=== PATIENT | female | born 1935 | race Caucasian/White ===

== ENCOUNTER 2019-02-22 18:50 | Observation (INO) ==
[2019-02-22] MEDS ORDERED: ONDANSETRON HCL/PF 2 MG/ML VIAL IV ONE (19:10)
[2019-02-22] MEDS ORDERED: NORMAL SALINE 1,000 ML IV ONE (19:10)
[2019-02-22] MEDS ORDERED: METOPROLOL TARTRATE 1 MG/ML AMPUL IV ONE ×2 (19:10→19:55)
--- NOTE | 2019-02-22 19:15 | ERNOTE ---
<Michael Bentley - Last Filed: 02/22/19 19:56> Medical Problem HPI - General Chief Complaint: Nausea/Vomiting Time Seen by Provider: 02/22/19 19:02 Source: patient, family Exam Limitations: no limitations - Immun/Allergies/Home Medications Immunizations: IMMUNIZATION HX Immunizations Up to Date Yes History of Influenza Vaccine Yes Hx Pneumococcal Vaccination Yes Allergies/Adverse Reactions: Allergies nitrofurantoin Allergy (Mild, Verified 02/20/19 10:05) Itching Sulfa (Sulfonamide Antibiotics) [Sulfa(Sulfonamide Antibiotics)] Allergy (Mild, Verified 02/20/19 10:05) Hives hydrocodone [From Vicodin] Allergy (Unknown, Verified 02/20/19 10:05) vomiting, headache, dizziness ciprofloxacin [From Cipro] Allergy (Verified 02/20/19 10:05) ciprofloxacin HCl [From Cipro] Allergy (Verified 02/20/19 10:05) oxycodone [Oxycodone] Adverse Reaction (Mild, Verified 02/20/19 10:05) Nausea acetaminophen [From Percocet] Adverse Reaction (Unknown, Verified 02/20/19 10:05) severe nausea sulfamethoxazole [From Septra] Adverse Reaction (Unknown, Verified 02/20/19 10:05) rash trimethoprim [From Septra] Adverse Reaction (Unknown, Verified 02/20/19 10:05) rash Home Medications: HOME MEDICATIONS Ubidecarenone [Q-Sorb Co Q-10] 100 mg PO DAILY 05/13/14 [Last Taken 06/19/14] Acetaminophen [Tylenol] 325 mg PO Q6H PRN 09/11/15 [Last Taken Unknown] Calcium Carb/Vitamin D3/Vit K1 [Calcium + D Soft Chewable Tab] 1 ea PO DAILY 09/02/17 [Last Taken Unknown] Tamoxifen Citrate 20 mg PO DAILY 09/02/17 [Last Taken Unknown] apixaban 2.5 mg tablet 2.5 mg PO BID #180 tab 02/19/19 [Last Taken Unknown] cephalexin 500 mg capsule 500 mg PO BID 5 Days #10 cap 02/20/19 [Last Taken Unknown] Ondansetron [Zofran Odt] 4 mg PO Q6H PRN #20 tab 02/21/19 [Last Taken Unknown] Atorvastatin Calcium [Lipitor] 1 tab PO HS 02/23/19 [Last Taken Unknown] Diltiazem HCl [Diltiazem 24Hr ER] 1 tab PO DAILY 02/23/19 [Last Taken Unknown] Furosemide [Lasix] 1 tab PO DAILY 02/23/19 [Last Taken Unknown] Lactobacillus Combo No.10 [Probiotic] 1 ea PO DAILY 02/23/19 [Last Taken Unknown] Levothyroxine Sodium [Synthroid] 1 tab PO DAILY 02/23/19 [Last Taken Unknown] Om3-Dha/Epa/D3/Lutein/Zeazanth [Eye [place] Advantage Softgel] 1 ea PO DAILY 02/23/19 [Last Taken Unknown] - History of Present History Narrative: Patient was seen here yesterday and was being treated for a urinary tract infec tion. Patient believes that she started to react to the Keflex as she has had dry heaving today. Of note she is also in an irregular heart rate that appears to be atrial fibrillation with a rapid ventricular response. Patient states that when she gets dehydrated or upset she goes into atrial fibrillation easily. She denies any chest pain or shortness of breath with this. Timing: constant Severity: moderate Modifying Factors - (Worsens): Present: medication - Keflex Review of Systems - Review of Systems Constitutional: Present: See HPI EYE: Present: no symptoms reported ENT: Present: no symptoms reported Respiratory: Present: no symptoms reported Cardiology: Present: See HPI Gastrointestinal/Abdominal: Present: See HPI, nausea Genitourinary: Present: no symptoms reported Musculoskeletal: Present: no symptoms reported Skin: Present: no symptoms reported Neurological: Present: no symptoms reported Endocrine: Present: no symptoms reported Hematologic/Lymphatic: Present: no symptoms reported Psych: Present: no symptoms reported Medical History (Last Reviewed 02/22/19 @ 19:25 by Breanne Pond RN) Seborrheic keratosis (Chronic) Onset Date: ~2001 Pulmonary nodule, right (Chronic) Onset Date: ~06/25/14 Myocardial infarction (Chronic) Onset Date: ~12/2009 Hypertension (Chronic) Onset Date: ~09/05/12 Hyperlipidemia (Chronic) Onset Date: Unknown Breast cancer (Chronic) Onset Date: ~2000 2000 & 09/27/13 Atrial fibrillation (Chronic) Onset Date: ~01/2006 Actinic keratosis Onset Date: ~07/2003 Diverticulitis Onset Date: Unknown Squamous cell carcinoma Onset Date: Unknown removed from right arm Venous stasis Onset Date: ~09/05/12 Surgical History: Surgical History (Last Reviewed 02/22/19 @ 19:25 by Breanne Pond RN) History of back surgery Onset Date: ~09/07/11 [facility] History of bladder suspension procedure Onset Date: ~1975 History of breast biopsy Onset Date: ~1997 1991 & 1997- benign History of cardiac catheterization Onset Date: ~12/23/09 normal History of cataract extraction Onset Date: ~01/2006 left History of cholecystectomy Onset Date: ~1999 History of colonoscopy Onset Date: Unknown History of hemorrhoidectomy Onset Date: ~1970 History of hysterectomy Onset Date: ~1971 History of local excision of skin lesion Onset Date: ~07/2002 popular lesion of the left upper back History of nevus excision Onset Date: ~07/2003 on the right side of the collar bone on the mid clavicular area, also one on the right upper anterior chest wall and a actinic keratosis on her forehead that was with electrocautery and electrodesiccation and curretage Family History: Family History (Last Reviewed 02/22/19 @ 19:25 by Breanne Pond RN) Father , 59 yrs Cancer colon Mother Cancer small intestine Myocardial infarction Sister Cancer Social History: (Last Reviewed 02/21/19 @ 03:18 by Samara Morrell RN) Social History: Marital status: household members: spouse Service: No Tobacco: Smoking Status: Never smoker Alcohol: alcohol intake: current Alcohol type: wine alcohol intake frequency: a few times a month Substance Use: substance use type: does not use Dietary Habits: caffeine: Yes Physical Exam - Physical Exam General Appearance: Present: wd/wn, alert, no apparent distress Head Exam: Present: normal inspection, no evidence of injury Eye Exam: Normal inspection: bilateral, PERRL: bilateral Ears, Nose, Throat: Present: normal ENT inspection, H, normal pharynx Neck: Present: normal inspection, nontender Respiratory: Present: no respiratory distress, normal breath sounds, no accessory muscle use, chest nontender, lungs clear Cardiovascular/Chest: Present: no murmur, normal peripheral pulses, tachycardia, irregularly irregular Gastrointestinal/Abdominal: Present: normal bowel sounds, nondistended, soft, no organomegaly, tenderness - Mild epigastric tenderness Rectal Exam: Present: deferred Back Exam: Present: normal inspection, normal range of motion Extremity Exam: Present: normal inspection, non-tender, no edema, normal range of motion Neurological Exam: Present: alert, oriented, normal mood/affect Skin Exam: Present: normal color, warm/dry Lymphatic Exam: Present: no adenopathy Progress - Results and Orders Patient's Lab Results:: I have reviewed the patient's lab results. - Vital Signs Patient's Vital Signs:: I have reviewed the patient's vital signs. Vital Signs: Vital Signs 02/22/19 18:54 Temperature 37.0 C Pulse Rate 154 H Respiratory Rate 14 Blood Pressure 135/74 O2 Sat by Pulse Oximetry 93 - EKG EKG #1 EKG: atrial fibrillation - With RVR EKG read: Reviewed by me - X-Ray X-Ray #1 X-Ray: chest Interpretation: Reviewed by me - Progress/Reassessment Chief Complaint: Nausea/Vomiting - Transfer of Care Physician Sign Out: Michael Bentley Receiving Physician: Brandi Mccall Plan - Plan Plan: Patient has a known history of paroxysmal atrial fibrillation. She may very well be able to go home if we can control her rate and get enough fluid on board that she is finally able to make urine. She is not in able to eat or drink much today because of the nausea and dry heaving. Departure Clinical Impression: Paroxysmal atrial fibrillation with rapid ventricular response, Hypovolemia UTI (urinary tract infection) Qualifiers: Urinary tract infection type: site unspecified Hematuria presence: without hematuria Qualified Code(s): N39.0 - Urinary tract infection, site not specified - Departure Disposition: Still a patient Condition: Good <Brandi Mccall - Last Filed: 02/23/19 10:08> Medical Problem HPI - Narrative Date of Service: 02/22/19 - Immun/Allergies/Home Medications Immunizations: IMMUNIZATION HX Immunizations Up to Date Yes History of Influenza Vaccine Yes Hx Pneumococcal Vaccination Yes Medical History (Last Reviewed 02/22/19 @ 19:25 by Breanne Pond RN) Seborrheic keratosis (Chronic) Onset Date: ~2001 Pulmonary nodule, right (Chronic) Onset Date: ~06/25/14 Myocardial infarction (Chronic) Onset Date: ~12/2009 Hypertension (Chronic) Onset Date: ~09/05/12 Hyperlipidemia (Chronic) Onset Date: Unknown Breast cancer (Chronic) Onset Date: ~2000 2000 & 09/27/13 Atrial fibrillation (Chronic) Onset Date: ~01/2006 Actinic keratosis Onset Date: ~07/2003 Diverticulitis Onset Date: Unknown Squamous cell carcinoma Onset Date: Unknown removed from right arm Venous stasis Onset Date: ~09/05/12 Surgical History: Surgical History (Last Reviewed 02/22/19 @ 19:25 by Breanne Pond RN) History of back surgery Onset Date: ~09/07/11 [facility] History of bladder suspension procedure Onset Date: ~1975 History of breast biopsy Onset Date: ~1997 1991 & 1997- benign History of cardiac catheterization Onset Date: ~12/23/09 normal History of cataract extraction Onset Date: ~01/2006 left History of cholecystectomy Onset Date: ~1999 History of colonoscopy Onset Date: Unknown History of hemorrhoidectomy Onset Date: ~1970 History of hysterectomy Onset Date: ~1971 History of local excision of skin lesion Onset Date: ~07/2002 popular lesion of the left upper back History of nevus excision Onset Date: ~07/2003 on the right side of the collar bone on the mid clavicular area, also one on the right upper anterior chest wall and a actinic keratosis on her forehead that was with electrocautery and electrodesiccation and curretage Family History: Family History (Last Reviewed 02/22/19 @ 19:25 by Breanne Pond RN) Father , 59 yrs Cancer colon Mother Cancer small intestine Myocardial infarction Sister Cancer Social History: (Last Reviewed 02/21/19 @ 03:18 by Samara Morrell RN) Social History: Marital status: household members: spouse Service: No Tobacco: Smoking Status: Never smoker Alcohol: alcohol intake: current Alcohol type: wine alcohol intake frequency: a few times a month Substance Use: substance use type: does not use Dietary Habits: caffeine: Yes Progress - Vital Signs Vital Signs: Vital Signs 02/22/19 18:54 02/22/19 18:57 02/22/19 19:21 Temperature 37.0 C Pulse Rate 154 H 120 H 144 H Respiratory Rate 14 16 Blood Pressure 135/74 109/62 109/51 O2 Sat by Pulse Oximetry 93 98 02/22/19 19:34 02/22/19 19:53 02/22/19 20:00 Temperature Pulse Rate 114 H 121 H 132 H Respiratory Rate 16 16 16 Blood Pressure 111/72 106/61 108/51 O2 Sat by Pulse Oximetry 98 98 98 02/22/19 20:05 02/22/19 20:09 02/22/19 20:36 Temperature 37.6 C Pulse Rate 129 H 125 H 121 H Respiratory Rate 16 16 Blood Pressure 108/54 98/63 108/52 O2 Sat by Pulse Oximetry 96 96 - X-Ray X-Ray #1 X-Ray: chest Interpretation: Reviewed by me X-ray Comments: IMPRESSION: No acute cardiopulmonary process. Large hiatal hernia. Electronically signed by Terri Gee D.O.. Plan - Plan Plan: Patient after initial fluid bolus of 500ml as well as administration of IV Lopressor remains to have rate of 118-127. Patient remains to have nausea and dry heaves. Discussed results with patient and will admit for UTI and AFIB. Case discussed with , administer IV Rocephin due to patient only taking am dose of cephalexin due to persistent nausea and dry heaves. Will also continue IV hydration.
[2019-02-22 19:26] LABS: Hematocrit 41.4 % (37.0-47.0); Hemoglobin 13.4 gm/dL (12.5-16.0); Mean Cell Volume 85.4 fl (78-100); Mean Corpuscular Hemoglobin 27.6 pg (27-31); Mean Corpuscular Hgb Conc 32.4 g/dl (32-36); Mean Platelet Volume 9.5 fl (8-12.5); Neutrophil # 6.2 K/mm3 (1.3-6.0); Neutrophil % 93.6 % (42-75.0); Platelet Count 189 K/mm3 (150-450); Red Blood Count 4.85 M/mm3 (4.2-5.4); Red Cell Distribution Width 15.9 % (11.5-14.0); White Blood Count 6.6 K/mm3 (4.0-10.5)
[2019-02-22 19:42] LABS: ALT 34 U/L (19-67); AST 46 U/L (0-48); Albumin * 2.4 gm/dl (3.4-5.0); Alkaline Phosphatase * 49 U/L (50-170); Anion Gap 12.4 mmol/L (6.8-13.8); BUN/Creatinine Ratio 14.4 (9.0-21.6); Bilirubin, Total 0.5 mg/dL (0.0-1.1); Blood Urea Nitrogen 18 mg/dL (3-23); Carbon Dioxide 26.1 mmol/L (24-32.6); Chloride 102 mmol/L (97-106); Glucose * 134 mg/dL (70-110); Magnesium 1.6 mg/dL (1.2-2.8); Potassium 3.5 mmol/L (3.4-4.6); Sodium 137 mmol/L (132-142); Total Protein 5.5 gm/dL (6.2-8.2); Troponin I Less than 0.017 ng/mL (0.00-0.10)
[2019-02-23] MEDS: NORMAL SALINE 1,000 ML IV PRN ×2 (00:02→09:12)
[2019-02-23] MEDS ORDERED: LEVOTHYROXINE SODIUM 50 MCG TABLET PO SCH (07:00)
[2019-02-23] MEDS ORDERED: ONDANSETRON 4 MG TAB.RAPDIS PO PRN (07:27)
[2019-02-23] MEDS ORDERED: ACETAMINOPHEN 325 MG TABLET PO PRN (07:27)
--- NOTE | 2019-02-23 07:39 | HP ---
Chief Complaint - Chief Complaint Date of Service: 02/23/19 Time of Service: 07:39 Chief Complaint: dry heaves/feels dehydrated History of Present Illness: Alexandra Navarrete is an 83-year-old white female patient of Dr. Pickard with past medical history of chronic atrial fibrillation, hypertension, hyperlipidemia, who was admitted for feeling dehydrated. 4 days prior to admission the patient felt that she was going to have a urinary tract infection and went to our walk- in clinic. She was given cephalexin. 3 days prior to admission she started retching and having dry heaving which she thought was a reaction to her antibiotic. 2 days prior to admission she felt overall weak and so she told her son to bring her to the emergency room were they gave her IV fluids and discharged her. On the night of admission the patient continued to have w orsening of her retching and dry heaving and felt she was getting dehydrated and so she went back to our emergency room where she was found to be in atrial fibrillation with rapid ventricular response. The patient says that when she gets dehydrated or upset she goes into atrial fibrillation easily. She was then admitted for observation and further management. Medical History (Last Reviewed 02/22/19 @ 19:25 by Breanne Pond RN) Seborrheic keratosis (Chronic) Onset Date: ~2001 Pulmonary nodule, right (Chronic) Onset Date: ~06/25/14 Myocardial infarction (Chronic) Onset Date: ~12/2009 Hypertension (Chronic) Onset Date: ~09/05/12 Hyperlipidemia (Chronic) Onset Date: Unknown Breast cancer (Chronic) Onset Date: ~2000 2000 & 09/27/13 Atrial fibrillation (Chronic) Onset Date: ~01/2006 Actinic keratosis Onset Date: ~07/2003 Diverticulitis Onset Date: Unknown Squamous cell carcinoma Onset Date: Unknown removed from right arm Venous stasis Onset Date: ~09/05/12 Surgical History: Surgical History (Last Reviewed 02/22/19 @ 19:25 by Breanne Pond RN) History of back surgery Onset Date: ~09/07/11 [facility] History of bladder suspension procedure Onset Date: ~1975 History of breast biopsy Onset Date: ~1997 1991 & 1997- benign History of cardiac catheterization Onset Date: ~12/23/09 normal History of cataract extraction Onset Date: ~01/2006 left History of cholecystectomy Onset Date: ~1999 History of colonoscopy Onset Date: Unknown History of hemorrhoidectomy Onset Date: ~1970 History of hysterectomy Onset Date: ~1971 History of local excision of skin lesion Onset Date: ~07/2002 popular lesion of the left upper back History of nevus excision Onset Date: ~07/2003 on the right side of the collar bone on the mid clavicular area, also one on the right upper anterior chest wall and a actinic keratosis on her forehead that was with electrocautery and electrodesiccation and curretage Family History: Family History (Last Reviewed 02/22/19 @ 19:25 by Breanne Pond RN) Father , 59 yrs Cancer colon Mother Cancer small intestine Myocardial infarction Sister Cancer Social History: (Last Reviewed 02/21/19 @ 03:18 by Samara Morrell RN) Social History: Marital status: household members: spouse Service: No Tobacco: Smoking Status: Never smoker Alcohol: alcohol intake: current Alcohol type: wine alcohol intake frequency: a few times a month Substance Use: substance use type: does not use Dietary Habits: caffeine: Yes Review Of Systems (GEN) - Review of Systems Generalized/Overall Review: Present: Weakness. Absent: Chills, Fever EENTM: Absent: Blurred Vision Respiratory: Present: Cough. Absent: Shortness of Breath, Orthopnea, Wheezing Cardiac: Absent: Edema, Palpitations Abdominal: Present: Nausea. Absent: Vomiting, Hematemesis, Abdominal Pain, Constipation, Diarrhea, Melena, Bright blood from rectum Genitourinary: Absent: Urgency, Frequency Musculoskeletal: Absent: Joint Pain Neurological: Absent: Anxiety, Depressed Skin: Absent: Lesions, Rash Misc: All systems neg except as marked Immunizations: IMMUNIZATION HX Immunizations Up to Date Yes History of Influenza Vaccine Yes Hx Pneumococcal Vaccination Yes Allergies/Adverse Reactions: Allergies Allergy/AdvReac Type Severity Reaction Status Date / Time nitrofurantoin Allergy Mild Itching Verified 02/20/19 10:05 Sulfa (Sulfonamide Allergy Mild Hives Verified 02/20/19 10:05 Antibiotics) [Sulfa(Sulfonamide Antibiotics)] hydrocodone [From Vicodin] Allergy Unknown vomiting, Verified 02/20/19 10:05 headache, dizziness ciprofloxacin [From Cipro] Allergy Verified 02/20/19 10:05 ciprofloxacin HCl Allergy Verified 02/20/19 10:05 [From Cipro] oxycodone [Oxycodone] AdvReac Mild Nausea Verified 02/20/19 10:05 acetaminophen [From Percocet] AdvReac Unknown severe Verified 02/20/19 10:05 nausea sulfamethoxazole AdvReac Unknown rash Verified 02/20/19 10:05 [From Septra] trimethoprim [From Septra] AdvReac Unknown rash Verified 02/20/19 10:05 Home Medications: HOME MEDICATIONS Ubidecarenone [Q-Sorb Co Q-10] 100 mg PO DAILY 05/13/14 [Last Taken 06/19/14] Acetaminophen [Tylenol] 325 mg PO Q6H PRN 09/11/15 [Last Taken Unknown] Calcium Carb/Vitamin D3/Vit K1 [Calcium + D Soft Chewable Tab] 1 ea PO DAILY 09/02/17 [Last Taken Unknown] Tamoxifen Citrate 20 mg PO DAILY 09/02/17 [Last Taken Unknown] apixaban 2.5 mg tablet 2.5 mg PO BID #180 tab 02/19/19 [Last Taken Unknown] cephalexin 500 mg capsule 500 mg PO BID 5 Days #10 cap 02/20/19 [Last Taken Unknown] Ondansetron [Zofran Odt] 4 mg PO Q6H PRN #20 tab 02/21/19 [Last Taken Unknown] Atorvastatin Calcium [Lipitor] 1 tab PO HS 02/23/19 [Last Taken Unknown] Diltiazem HCl [Diltiazem 24Hr ER] 1 tab PO DAILY 02/23/19 [Last Taken Unknown] Furosemide [Lasix] 1 tab PO DAILY 02/23/19 [Last Taken Unknown] Lactobacillus Combo No.10 [Probiotic] 1 ea PO DAILY 02/23/19 [Last Taken Unknown] Levothyroxine Sodium [Synthroid] 1 tab PO DAILY 02/23/19 [Last Taken Unknown] Om3-Dha/Epa/D3/Lutein/Zeazanth [Eye [place] Advantage Softgel] 1 ea PO DAILY 02/23/19 [Last Taken Unknown] Exam - Exam Vital Signs: Vital Signs - Last Taken Temp 35.2 C L 02/23/19 06:00 Pulse 125 H 02/23/19 06:00 Resp 14 02/23/19 06:00 BP 106/49 02/23/19 06:00 Pulse Ox 92 L 02/23/19 06:00 Constitutional: Present: Alert, Oriented x3, Cooperative ENT Exam: Present: hearing grossly normal Eye Exam: bilateral eye: normal inspection, PERRL, EOMI Neck: Present: supple Respiratory: Present: decreased breath sounds, No rales, No wheezing Cardiovascular/Chest: Present: no JVD, no murmur, irregularly irregular Abdomen: Present: Normal bowel sounds, soft, nontender, obese, negative Toussaint sign Extremity: Present: no pedal edema, no calf tenderness Diagnostic Studies: Abnormal Lab Results 02/22/19 02/22/19 Range/Units 19:20 19:20 RDW 15.9 H (11.5-14.0) % Neutrophils % 93.6 H (42-75.0) % Lymphocytes % 2.1 L (20-51) % Neutrophils # 6.2 H (1.3-6.0) K/mm3 Lymphocytes # 0.14 L (1.5-3.5) k/mm3 Est GFR (Non-Af Amer) 43 L (60-130) mL/min Random Glucose 134 H D (70-110) mg/dL Alkaline Phosphatase 49 L (50-170) U/L Total Protein 5.5 L (6.2-8.2) gm/dL Albumin 2.4 L (3.4-5.0) gm/dl Laboratory Results WBC 6.6 K/mm3 (4.0-10.5) D 02/22/19 19:20 RBC 4.85 M/mm3 (4.2-5.4) 02/22/19 19:20 Hgb 13.4 gm/dL (12.5-16.0) 02/22/19 19:20 Hct 41.4 % (37.0-47.0) 02/22/19 19:20 MCV 85.4 fl (78-100) 02/22/19 19:20 MCH 27.6 pg (27-31) 02/22/19 19:20 MCHC 32.4 g/dl (32-36) 02/22/19 19:20 RDW 15.9 % (11.5-14.0) H 02/22/19 19:20 Plt Count 189 K/mm3 (150-450) 02/22/19 19:20 MPV 9.5 fl (8-12.5) 02/22/19 19:20 Immature Gran % (Auto) 0.30 % (0.001-0.429) 02/22/19 19:20 Immature Gran # (Auto) 0.02 K/mm3 (0.000-0.0310) 02/22/19 19:20 Neutrophils % 93.6 % (42-75.0) H 02/22/19 19:20 Lymphocytes % 2.1 % (20-51) L 02/22/19 19:20 Monocytes % 1.4 % (0.0-9) 02/22/19 19:20 Eosinophils % 2.4 % (0.0-3.0) 02/22/19 19:20 Basophils % 0.2 % (0.0-1.0) 02/22/19 19:20 Nucleated RBC % 0.0 k/mm3 (0-1) 02/22/19 19:20 Neutrophils # 6.2 K/mm3 (1.3-6.0) H 02/22/19 19:20 Lymphocytes # 0.14 k/mm3 (1.5-3.5) L 02/22/19 19:20 Monocytes # 0.1 k/mm3 (0.0-1.0) 02/22/19 19:20 Eosinophils # 0.2 k/mm3 (0.0-0.7) 02/22/19 19:20 Absolute Basophils 0.0 k/mm3 (0.0-0.1) 02/22/19 19:20 Sodium 137 mmol/L (132-142) 02/22/19 19:20 Plasma Sodium 138 mmol/L (130-142) 02/22/19 19:20 Potassium 3.5 mmol/L (3.4-4.6) 02/22/19 19:20 Chloride 102 mmol/L (97-106) 02/22/19 19:20 Carbon Dioxide 26.1 mmol/L (24-32.6) 02/22/19 19:20 Anion Gap 12.4 mmol/L (6.8-13.8) 02/22/19 19:20 BUN 18 mg/dL (3-23) 02/22/19 19:20 Creatinine 1.25 mg/dL (0.4-1.4) 02/22/19 19:20 Est GFR (Non-Af Amer) 43 mL/min (60-130) L 02/22/19 19:20 BUN/Creatinine Ratio 14.4 (9.0-21.6) 02/22/19 19:20 Random Glucose 134 mg/dL (70-110) H D 02/22/19 19:20 Calcium 8.0 mg/dL (7.9-10.9) 02/22/19 19:20 Calcium Adj for Albumin 9.0 mg/dL (8.4-10.2) 02/22/19 19: Magnesium 1.6 mg/dL (1.2-2.8) 02/22/19 19:20 Total Bilirubin 0.5 mg/dL (0.0-1.1) 02/22/19 19:20 AST 46 U/L (0-48) 02/22/19 19:20 ALT 34 U/L (19-67) 02/22/19 19:20 Alkaline Phosphatase 49 U/L (50-170) L 02/22/19 19:20 Troponin I Less than 0.017 ng/mL (0.00-0.10) 02/22/19 19: Total Protein 5.5 gm/dL (6.2-8.2) L 02/22/19 19:20 Albumin 2.4 gm/dl (3.4-5.0) L 02/22/19 19:20 Assessment/Plan - Narrative Narrative: Alexandra Marin was admitted for atrial fibrillation with rapid ventricular response, UTI, dehydration. She had with the Rocephin given yesterday in the ER a total of 4 days of antibiotics. His urine culture showed no growth. We will stop her IV antibiotics. We will give her on a proton pump inhibitor and continue with IV fluids. We will add TSH to her labs that was drawn on admission. She will be getting her usual 360 of diltiazem this morning. If she is continues to be with rapid ventricular response we will give her some IV Lopressor and hopefully once her dehydration resolves her heart rate will get better controlled. If she starts improving will discharge her today , if not will change her to acute status. - Assessment/Plan (1) Paroxysmal atrial fibrillation with rapid ventricular response Problem: Acute (2) Hypertension Problem: Chronic (3) Hyperlipidemia Problem: Chronic (4) Atrial fibrillation Problem: Chronic (5) Dehydration, moderate Problem: Acute (6) UTI (urinary tract infection) Problem: Acute Qualifiers: Urinary tract infection type: site unspecified Hematuria presence: without hematuria Qualified Code(s): N39.0 - Urinary tract infection, site not specified
[2019-02-23] MEDS ORDERED: DILTIAZEM HCL 180 MG CAP.SR.24H PO SCH (09:00)
[2019-02-23] MEDS ORDERED: APIXABAN 2.5 MG TABLET PO SCH (09:00)
[2019-02-23] MEDS ORDERED: TAMOXIFEN CITRATE 10 MG TABLET PO SCH (09:00)
[2019-02-23] MEDS ORDERED: LACTOBACILLUS ACIDOPHILUS 1 EACH CAPSULE PO SCH (09:00)
[2019-02-23] MEDS ORDERED: COENZYME Q10 PO SCH (09:00)
[2019-02-23] MEDS ORDERED: [UNRECOGNIZED DRUG - OTHER] PO SCH (09:00)
[2019-02-23] MEDS ORDERED: [UNRECOGNIZED DRUG - OTHER] PO SCH (09:00)
[2019-02-23] MEDS ORDERED: SIMETHICONE 80 MG TAB.CHEW PO PRN (12:46)
[2019-02-23] MEDS ORDERED: PANTOPRAZOLE SODIUM 40 MG in NORMAL SALINE 100 ML IV ONE (12:47)
--- NOTE | 2019-02-23 13:38 | DS ---
(1) Paroxysmal atrial fibrillation with rapid ventricular response Problem: Acute (2) Hypertension Problem: Chronic (3) Hyperlipidemia Problem: Chronic (4) Atrial fibrillation Problem: Chronic (5) Dehydration, moderate Problem: Acute (6) UTI (urinary tract infection) Problem: Acute Qualifiers: Urinary tract infection type: site unspecified Hematuria presence: without hematuria Qualified Code(s): N39.0 - Urinary tract infection, site not specified Date of Discharge:: 02/23/19 Hospital Course: Alexandra Navarrete is an 83-year-old white female patient of Dr. Pickard with past medical history of chronic atrial fibrillation, hypertension, hyperlipidemia, who was admitted for feeling dehydrated. 4 days prior to admission the patient felt that she was going to have a urinary tract infection and went to our walk- in clinic. She was given cephalexin. 3 days prior to admission she started retching and having dry heaving which she thought was a reaction to her antibiotic. 2 days prior to admission she felt overall weak and so she told her son to bring her to the emergency room were they gave her IV fluids and discharged her. On the night of admission the patient continued to have worsening of her retching and dry heaving and felt she was getting dehydrated and so she went back to our emergency room where she was found to be in atrial fibrillation with rapid ventricular response. The patient says that when she gets dehydrated or upset she goes into atrial fibrillation easily. She was then admitted for observation and further management. We continued with her IVFG. She got her Diltiazem 360 mg PO qd. Her HR ran in the 90-s to 105. She says she feels better. She no longer had the dry heave but still has the belching. Will give her IV protonix x1 and give her simethiconne 80 QID PRN for indigestion/belching. She may go home today if her HR remains controlled. Follow up with her PCP next week. She was also told her UCS did not grow anything and will d/c her antibiotics. Procedures Performed: none Results and Findings: Lab Pending Results 02/22/19 19:11: TSH 5.566 H 02/22/19 19:20: WBC 6.6 D, RBC 4.85, Hgb 13.4, Hct 41.4, MCV 85.4, MCH 27.6, MCHC 32.4, RDW 15.9 H, Plt Count 189, MPV 9.5, Immature Gran % (Auto) 0.30, Immature Gran # (Auto) 0.02, Neutrophils % 93.6 H, Lymphocytes % 2.1 L, Monocytes % 1.4, Eosinophils % 2.4, Basophils % 0.2, Nucleated RBC % 0.0, Neutrophils # 6.2 H, Lymphocytes # 0.14 L, Monocytes # 0.1, Eosinophils # 0.2, Absolute Basophils 0.0 02/22/19 19:20: Sodium 137, Plasma Sodium 138, Potassium 3.5, Chloride 102, Carbon Dioxide 26.1, Anion Gap 12.4, BUN 18, Creatinine 1.25, Est GFR (Non-Af Amer) 43 L, BUN/Creatinine Ratio 14.4, Random Glucose 134 H D, Calcium 8.0, Calcium Adj for Albumin 9.0, Magnesium 1.6, Total Bilirubin 0.5, AST 46, ALT 34, Alkaline Phosphatase 49 L, Troponin I Less than 0.017, Total Protein 5.5 L, Albumin 2.4 L Discharge Location: Home Disposition: Home self-care Condition: Good Discharge Activity: Activity as tolerated Discharge Diet: Low salt Referrals: Mari Pickard MD [Primary Care Provider] - Additional Patient Instructions (free text): Follow up with her PCP next week. Prescriptions (Any new or edited meds): Simethicone [Mylicon Chewable Tablets] 80 mg PO QID PRN 7 Days #21 tab.chew PRN Reason: Indigestion Transmission Status: Pending to [place], [place] Omeprazole 20 mg PO DAILY #14 tablet.dr Transmission Status: Pending to [place], [place] Complete Home Medications List: Complete Home Medication List: Ubidecarenone [Q-Sorb Co Q-10] 100 mg PO DAILY 05/13/14 Acetaminophen [Tylenol] 325 mg PO Q6H PRN 09/11/15 Calcium Carb/Vitamin D3/Vit K1 [Calcium + D Soft Chewable Tab] 1 ea PO DAILY 09/02/17 Tamoxifen Citrate 20 mg PO DAILY 09/02/17 apixaban 2.5 mg tablet 2.5 mg PO BID #180 tab 02/19/19 Ondansetron [Zofran Odt] 4 mg PO Q6H PRN #20 tab 02/21/19 Atorvastatin Calcium [Lipitor] 1 tab PO HS 02/23/19 Diltiazem HCl [Diltiazem 24Hr ER] 1 tab PO DAILY 02/23/19 Furosemide [Lasix] 1 tab PO DAILY 02/23/19 Lactobacillus Combo No.10 [Probiotic] 1 ea PO DAILY 02/23/19 Levothyroxine Sodium [Synthroid] 1 tab PO DAILY 02/23/19 Om3-Dha/Epa/D3/Lutein/Zeazanth [Eye Slater Advantage Softgel] 1 ea PO DAILY 02/23/19 Omeprazole 20 mg PO DAILY #14 tablet.dr 02/23/19 Simethicone [Mylicon Chewable Tablets] 80 mg PO QID PRN 7 Days #21 tab.chew 02/23/19
[2019-02-23 15:04] VITALS: BP 114/54
[2019-02-23] MEDS ORDERED: ROSUVASTATIN CALCIUM 10 MG TABLET PO SCH (21:00)
== END 2019-02-23 16:21 | disposition home or self-care (01) ==
LOC: MS 18:50 → ER 18:50 → MS 21:36
PROVIDERS: ADMIT Internal Medicine; ATTEND Internal Medicine
DX: E86.0 Dehydration; I48.91 Unspecified atrial fibrillation; I10 Essential (primary) hypertension; E78.5 Hyperlipidemia, unspecified; N39.0 Urinary tract infection, site not specified
CPT/HCPCS: 36415; 71020; 71046; 80053; 83735; 84443; 84484; 85025; 93005; 96365; 96366; 96375; 99285; G0378; J2405